=== PATIENT | male | born 1960 | race Caucasian/White ===

== ENCOUNTER 2024-03-13 11:41 | Emergency (ER) | payer OTHER, SELFPAY ==
[2024-03-13 11:44] VITALS: BP 155/90; BMI 19.4
[2024-03-13 12:22] LABS: % Basophils 1.6 % (0-2); % Eosinophils 0.5 % (0-6); % Immature Granulocytes 0.3 % (0-0.5); % Lymphocytes 24.4 % (20.5-51.1); % Monocytes 12.7 % (1.7-9.3); % Neutrophils 60.5 % (42.2-75.2); Absolute Basophils 0.1 10^3/uL (0-0.2); Absolute Lymphocytes 1.9 10^3/uL (1.2-3.4); Absolute Neutrophils 4.6 10^3/uL (1.4-6.5); Hematocrit 36.7 % (39.0-52.0); Hemoglobin 12.6 g/dL (13.0-18.0); Mean Corp Hgb Conc. 34.3 g/dL (33.0-37.0); Mean Corpuscular Hgb 30.7 pg (27.0-31.0); Mean Corpuscular Volume 89.3 fL (80.0-94.0); Mean Platelet Volume 10.4 fL (7.4-10.4); Nucleated Red Blood Cells % 0 % (-); Platelet Count 173 10^3/uL (130-400); Red Blood Cell Count 4.11 10^6/uL (4.70-6.10); Red Cell Dist. Width 14.3 % (11.5-14.5); White Blood Cell Count 7.6 10^3/uL (4.8-10.8)
[2024-03-13 12:31] LABS: ALT (SGPT) 67 U/L (0-50); AST (SGOT) 236 U/L (17-59); Albumin 4.8 g/dl (3.5-5.0); Alkaline Phosphatase 92 U/L (38-126); Blood Urea Nitrogen 8 mg/dl (9-20); Calcium 8.9 mg/dl (8.4-10.2); Carbon Dioxide 29 mmol/L (22-30); Chloride 100 mmol/L (98-107); Estimated Creatinine Clearance 107 ml/min; Glucose 109 mg/dl (70-99); Potassium 3.5 mmol/L (3.5-5.1); Sodium 148 mmol/L (135-145); Total Bilirubin 1.5 mg/dl (0.2-1.3); Total Protein 8.1 g/dl (6.3-8.2); eGFR > 60.00
--- NOTE | 2024-03-13 12:34 | ED.GENMED ---
History of Present Illness
General
Chief Complaint: Fainting/Passed Out
Source: patient
Exam Limitations: none
Time Seen by Provider: 03/13/24 12:16
History of Present Illness
History of Present Illness:
63-year-old male presents via EMS after syncopal episode x 2 this morning. He was sleeping on the couch and stood up quickly to answer the door. He was leaning against a shelf and fell over. The contractor that was at the door caught him.
Patient woke up he bent over to nut picker his glasses off the floor and he toppled over again. There is no preceding chest pain. He was pale and sweaty. He was able to wake up and have a conversation afterwards. He denies any current chest pain.
Patient admits to drinking large amounts of alcohol on a daily basis. He does not eat or drink nearly enough self-admittedly. He is not currently on any medication
Past History
Past History
ED Past Medical History: None
ED Past Surgical History: None
Phy Exam
Physical Exam
Physical Exam:
General: Well-appearing male in no acute respiratory distress
HEENT: Normocephalic atraumatic
Heart: Regular rate and rhythm no murmurs
Lungs: Clear no wheeze
Abd: soft, nontender
Ext: no cyanosis or edema
skin: Warm, no rash
Neuro: Alert and oriented x 3. no facial asymmetry.
Course
Orders/Labs/Results
Orders:
Orders
03/13/24 11:43
Electrocardiogram (*1) Urgent
Reason for Study: Chest Pain
EKG- Treatment ONCE
IV Insert/Care/Rem.- Treatment PRN
03/13/24 11:55
Complete Blood Count/With Diff Urgent
Comprehensive Metabolic Panel Urgent
Troponin I Urgent
03/13/24 12:45
0.9% Sodium Chloride 1000 ml [Nss] 1,000 ml IV BOLUS
Abnormal Lab Results
03/13/24
11:55
RBC 4.11 L 10^6/uL
(4.70-6.10)
Hgb 12.6 L g/dL
(13.0-18.0)
Hct 36.7 L %
(39.0-52.0)
Absolute Monos (auto) 1.0 H 10^3/uL
(0.1-0.6)
Monocytes % 12.7 H %
(1.7-9.3)
Sodium 148 H mmol/L
(135-145)
BUN 8 L mg/dl
(9-20)
Creatinine 0.6 L mg/dL
(0.7-1.3)
Glucose 109 H mg/dl
(70-99)
Total Bilirubin 1.5 H mg/dl
(0.2-1.3)
AST 236 H U/L
(17-59)
ALT 67 H U/L
(0-50)
03/13/24 11:55
03/13/24 11:55
Vital Signs
Initial and Last Documented VS:
Initial Vital Signs
Temp Pulse Resp BP Pulse Ox
98.1 F 95 14 155/90 99
03/13/24 11:44 03/13/24 11:44 03/13/24 11:44 03/13/24 11:44 03/13/24 11:44
Last Documented Vital Signs
Temp Pulse Resp BP Pulse Ox
98.1 F 84 16 155/90 96
03/13/24 11:44 03/13/24 13:30 03/13/24 13:30 03/13/24 11:44 03/13/24 13:30
MDM/Problems Addressed
Differential Diagnosis Includes:
Syncope. Question arrhythmia versus vasovagal versus orthostasis versus anemia
EKG shows sinus rhythm. Vital signs are stable on the monitor. No arrhythmias noted
Check labs. LFTs elevated consistent with alcohol abuse. Sodium 148 to suggest hemoconcentration
Will hydrate. Keep on monitor. Discussed with family
Will offer help from drug and alcohol vascular specialists
*Critical Care Note
Total Time (30-74mins, 75-104mins- exclusive of procedures): Not Applicable
Update Note
Update Note:
Patient agreeable to speak with [facility] for alcohol abuse
Patient spoke with [facility] and family spoke with them as well. At this point patient is not quite ready to commit to inpatient treatment. He feels as though he can try this on his own. I had multiple discussions with the family. Explained to him
that his liver functions are elevated secondary to his alcohol abuse. Patient was hydrated. No further syncopal episodes here. No arrhythmias. Will discharge patient
ED Attending Note
-
Portions of this chart may have been created with voice recognition software.� Occasional wrong word or��sound alike� substitutions may have occurred due to the inherent limitations of voice recognition software.
Discharge Plan
Departure
Patient Disposition: Home (Routine Discharge)
Date of Disposition: 03/13/24
Time of Disposition: 15:34
Patient with high blood pressure during this ER visit?: No
Discharge Problem:
Alcohol abuse, Elevated LFTs, Syncope
Instructions: Alcohol Use Disorder (DC)
Prescriptions:
No Action
ibuprofen 800 MG tablet
800 mg PO Q6HPRN PRN (Reason: pain)
Referrals:
Nelson Arce DO [Family Provider] -
Activity Restrictions/Additional Instructions:
Please seek help for your alcohol abuse. Please return here for any worsening symptoms. Follow-up with family doctor otherwise
Interventions
Interventions:
*Risk Screen - Suicide Last Done: 03/13/24 11:44
*General Assessment Last Done: 03/13/24 11:44
*Neglect/Abuse Screening Last Done: 03/13/24 11:44
ED- Fall Risk Assessment Last Done: 03/13/24 11:44
*ED COVID-19 Vaccine History Last Done: 03/13/24 11:44
ED- Cardiac Assessment Last Done: 03/13/24 11:44
ED- Neurological Assessment Last Done: 03/13/24 11:44
Discharge Date and Time
Print Language: [id number]
[2024-03-13 12:42] LABS: Troponin I < 0.012 ng/ml
[2024-03-13] MEDS: NSS 1000 IV (13:30)
[2024-03-13 14:00] VITALS: BP 139/84
[2024-03-13 15:00] VITALS: BP 126/75
== END 2024-03-13 15:55 | disposition home or self-care (01) ==
LOC: EMR 11:41
PROVIDERS: EMERGENCY PHYSICIAN Student in an Organized Health Care Education/Training Program; FAMILY PHYSICIAN Family Medicine
DX: F10.10 Alcohol abuse, uncomplicated (principal); R79.89 Other specified abnormal findings of blood chemistry; R55 Syncope and collapse
CPT/HCPCS: 99284; 96360; 80053; 84484; 85025; 93005

== ENCOUNTER → 2024-07-04 12:11 | Outpatient (REF) | payer OTHER, SELFPAY | LOC: MRI 3T 12:11 | PROVIDERS: ATTENDING PHYSICIAN Physical Medicine & Rehabilitation; FAMILY PHYSICIAN Physician Assistant Medical | DX: M54.16 Radiculopathy, lumbar region (principal) | CPT/HCPCS: 72158; A9575 ==

== ENCOUNTER → 2024-08-15 11:57 | Outpatient (REF) | payer OTHER, SELFPAY | LOC: PAVMRI 11:57 | PROVIDERS: ATTENDING PHYSICIAN Physician Assistant Medical | DX: R19.02 Left upper quadrant abdominal swelling, mass and lump (principal) | CPT/HCPCS: 74183; A9575 ==

== ENCOUNTER → 2024-08-27 12:06 | Outpatient (REF) | payer OTHER, SELFPAY | LOC: EMG 12:06 | PROVIDERS: ATTENDING PHYSICIAN Physician Assistant Medical; FAMILY PHYSICIAN Physician Assistant Medical | DX: R20.0 Anesthesia of skin (principal) | CPT/HCPCS: 95886; 95911 ==

== ENCOUNTER → 2024-12-24 12:13 | Outpatient (REF) | payer OTHER, SELFPAY | LOC: MRI 12:13 | PROVIDERS: ATTENDING PHYSICIAN Physician Assistant Medical; FAMILY PHYSICIAN Physician Assistant Medical | DX: D33.4 Benign neoplasm of spinal cord (principal) | CPT/HCPCS: 70553; 72156; A9575 ==

== ENCOUNTER → 2024-12-31 12:03 | Outpatient (REF) | payer OTHER, SELFPAY | LOC: MRI 12:03 | PROVIDERS: ATTENDING PHYSICIAN Physician Assistant Medical; FAMILY PHYSICIAN Physician Assistant Medical | DX: D33.4 Benign neoplasm of spinal cord (principal) | CPT/HCPCS: 72157; A9575 ==

== ENCOUNTER → 2025-02-03 09:02 | Outpatient (REF) | payer OTHER, SELFPAY ==
[2025-02-03] VITALS (8 sets, daily range): BP systolic 56–134; BP diastolic 64–80
[2025-02-03 09:26] LABS: Hematocrit 36.5 % (39.0-52.0); Hemoglobin 11.9 g/dL (13.0-18.0); Mean Corp Hgb Conc. 32.6 g/dL (33.0-37.0); Mean Corpuscular Volume 88.0 fL (80.0-94.0); Platelet Count 295 10^3/uL (130-400); Red Cell Dist. Width 14.1 % (11.5-14.5)
[2025-02-03 09:38] LABS: INR 1.01; PT 13.6 Sec (11.4-14.6)
== END ==
LOC: RADI 09:02
PROVIDERS: ATTENDING PHYSICIAN Neurological Surgery; FAMILY PHYSICIAN Physician Assistant Medical
DX: D36.17 Benign neoplasm of peripheral nerves and autonomic nervous system of trunk, unspecified (principal)
CPT/HCPCS: 20206; 20225; 36415; 77012; 85027; 85610; 88305; 88333; 88341; 88342; 99152; 99153

== ENCOUNTER → 2025-02-06 12:14 | Outpatient (REF) | payer OTHER, SELFPAY | LOC: RAD 12:14 | PROVIDERS: ATTENDING PHYSICIAN Neurological Surgery; FAMILY PHYSICIAN Physician Assistant Medical | DX: D49.2 Neoplasm of unspecified behavior of bone, soft tissue, and skin (principal) | CPT/HCPCS: 71260; Q9967 ==

== ENCOUNTER → 2025-03-04 12:45 | Outpatient (REF) | payer OTHER, SELFPAY | LOC: RCS 12:45 | PROVIDERS: ATTENDING PHYSICIAN Physician Assistant Medical | DX: I35.9 Nonrheumatic aortic valve disorder, unspecified (principal) | CPT/HCPCS: 93306 ==